=== PATIENT | female | born 1970 | race Caucasian/White ===

== ENCOUNTER 2019-03-11 09:25 | Emergency (ER) | payer OTHER ==
[2019-03-11] MEDS ORDERED: NALBUPHINE HCL 10 MG/1 ML IVP ONE (09:53)
[2019-03-11] MEDS ORDERED: 0.9 % SODIUM CHLORIDE 500 ML IV ONE ×2 (09:53→10:22)
[2019-03-11 10:19] LABS: BASOPHILS % 0.3 % (0.0-1.5); NEUTROPHILS # 3.2 # k/uL (1.4-7.7)
[2019-03-11] MEDS ORDERED: ONDANSETRON HCL/PF 4 MG/ 2ML VIAL IVP ONE (10:22)
--- NOTE | 2019-03-11 10:22 | Diagnostic Imaging Report ---
PATIENT MR#: [id number] PATIENT PATIENT NAME: ORLIN CASTELLON DATE OF : 1970 REFERRING PHYSICIAN: Jv Garcia EXAM DATE: 03/11/2019 ACCESSION NUMBER: [id number] EXAM DESCRIPTION: CT BRAIN W/O CONTRAST Exam: CT brain without contrast. History: Headache. Previous shunting. Axial images through the brain are submitted along with sagittal and coronal reformatted images. No previous studies are available for comparison. The brainstem and cerebellum are of normal attenuation. A 1 cm area of diminished attenuation in the right cerebellar hemisphere could represent old infarct. In the supratentorial regions a ventriculoperitoneal shunt enters the intracranial vault via the post erior aspect of the left parietal bone. The tip of the shunt is noted be position between the lateral ventricles anterio rly. A surgical clip in the basilar cistern is noted indicating previous repair of aneurysm. An area of diminished a ttenuation in the anterior aspect of the left parietal lobe may represent an old cortical infarct. No extra-axial flui d collections are identified. Craniotomy defect in the left anterior aspect of the parietal bone is noted. No other b sage abnormalities are identified. Impression: Postoperative changes indicating previous shunt placement and aneurysm repair. 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 No acute hemorrhage or mass effect is identified. Comparison with previous studies may be beneficial to further evaluate. Old right cerebellar hemisphere infarct is suspected. Read by: Dr. Mp Moreno Transcribed by: Transcribed Date: Electronically signed by: Dr. Mp Moreno Date signed: 03/11/2019 10:21:54 AM
--- NOTE | 2019-03-11 10:25 | ED Physician Documentation ---
General Adult - HISTORIAN Historian: patient, spouse - HPI Stated Complaint: headache, recent COT[employer] BR[employer]ER shunt Chief Complaint: General Adult Onset: hours Timing: still present Severity: moderate Further Comments: yes (Pt is a 48 yo female with c/o headache. 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 Pt has hx HTN and had elevated bp yesterday with increase in Doxaxosin dosing. Pt is normotensive on presentation.) - ROS CONST: no problems EYES/ENT: none CVS/RESP: none GI/: none MS/SKIN/LYMPH: none NEURO/PSYCH: headache - PAST HX Past History: other (chronic pain, HTN, cerebral aneurysm repair, COTTON BROKER shunt) Allergies/Adverse Reactions: Allergies Allergy/AdvReac Type Severity Reaction Status Date / Time No Known Allergies Allergy Verified 03/11/19 11:44 Home Medications: Ambulatory Orders Medication Instructions Recorded Baclofen [Liorasal] 10 mg PO TID 03/11/19 Doxazosin Mesylate [Cardura] 1 mg PO DAILY 03/11/19 Lacosamide [Vimpat] 100 mg PO BID 03/11/19 Venlafaxine HCl [Effexor] 50 mg PO BID 03/11/19 - SOCIAL HX Smoking History: non-smoker - FAMILY HX Family History: No - VITAL SIGNS Vital Signs: Vital Signs Temp Pulse Resp BP Pulse Ox 163/108 08/19/14 21:01 - REVIEWED ASSESSMENTS Nursing Assessment Reviewed: Yes Vitals Reviewed: Yes Progress - Progress Progress: NS 1 L IVF Zofran 4 mg IV Nubain 5 mg IV improved Exam: CT brain without contrast. History: Headache. Previous shunting. Axial images through the brain are submitted along with sagittal and coronal reformatted images. No previous studies are available for comparison. The brainstem and cerebellum are of normal attenuation. A 1 cm area of diminished attenuation in the right cerebellar hemisphere could represent old infarct. In the supratentorial regions a ventriculoperitoneal shunt enters the intracranial vault via the posterior aspect of the left parietal bone. The tip of the shunt is noted be position between the lateral ventricles anteriorly. A surgical clip in the basilar cistern is noted indicating previous repair of aneurysm. An area of diminished attenuation in the anterior aspect of the left parietal lobe may represent an old cortical infarct. No extra-axial fluid collections are identified. Craniotomy defect in the left anterior aspect of the parietal bone is noted. No other bony abnormalities are identified. Impression: Postoperative changes indicating previous shunt placement and aneurysm repair. 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 No acute hemorrhage or mass effect is identified. Comparison with previous studies may be beneficial to further evaluate. Old right cerebellar hemisphere infarct is suspected. ED Results Lab/Radiology - Lab Results Lab Results: Lab Results 03/11/19 10:14 WBC 4.40 K/ul K/ul (4.00-12.00) RBC 4.66 M/ul M/ul (3.90-5.20) Hgb 12.7 g/dL g/dL (11.5-16.0) Hct 39.1 % % (34.5-46.5) MCV 84.0 fl fl (80.0-100.0) MCH 27.3 pg L pg (28.0-34.0) MCHC 32.5 g/dL g/dL (30.0-36.0) RDW 12.8 % % (11.3-14.3) Plt Count 257 K/mm3 K/mm3 (130-400) Neut % (Auto) 71.7 % % (39.0-79.0) Lymph % (Auto) 15.0 % L % (16.0-50.0) Stokes % (Auto) 12.3 % H % (0.0-11.0) Eos % (Auto) 0.7 % % (0.0-6.8) Baso % (Auto) 0.3 % % (0.0-1.5) Neut # (Auto) 3.2 # k/uL # k/uL (1.4-7.7) Lymph # (Auto) 0.7 # k/uL # k/uL (0.6-4.0) Stokes # (Auto) 0.5 # k/uL # k/uL (0.0-0.9) Eos # (Auto) 0.0 # k/uL # k/uL (0.0-0.6) Baso # (Auto) 0.0 # k/uL # k/uL (0.0-0.5) - Orders Orders: ED Orders Category Date Time Status Place IV Lock 1T Care 03/11/19 09:[address] BRAIN W/O CONTRAST Stat Exams 03/11/19 Taken CBC/PLATELET/DIFF Routine Lab 03/11/19 10:14 Completed CMP [CMP] Routine Lab 03/11/19 10:14 Received 0.9 % Sodium Chloride [Normal Saline] 500 ml Med 03/11/19 09:53 Active IV NOW NORMAL SALINE @ 500 MLS/HR(500ml BOLUS) Med 03/11/19 10:22 Ordered 0.9 % Sodium Chloride [Normal Saline] 500 ml IV NOW Nalbuphine HCl [Nubain] Med 03/11/19 09:53 Discontinued 5 mg IVP NOW ONE Ondansetron HCl/Pf [Zofran] Med 03/11/19 10:22 Once 4 mg IVP NOW ONE General Adult Physical Exam - PHYSICAL EXAM GENERAL APPEARANCE: moderate distress EENT: eye inspection normal, pharynx normal NECK: normal inspection, supple RESPIRATORY: no resp distress, chest non-tender, breath sounds normal CVS: reg rate & rhythm, heart sounds normal ABDOMEN: soft, no organomegaly, normal bowel sounds BACK: normal inspection SKIN: warm/dry, normal color EXTREMITIES: non-tender, normal range of motion, no evidence of injury, no edema NEURO: motor nml, sensation nml, other (baseline mental status (pt has poor short-term memory, s/p cerebral aneurysm repair)) Discharge Clincal Impression: Headache Qualifiers: Headache type: unspecified Headache chronicity pattern: unspecified pattern Intractability: not intractable Qualified Code(s): R51 - Headache Referrals: Jv Blankenship DO [STAFF PHYSICIAN] - Condition: Stable Disposition: 01 HOME, SELF-CARE Decision to Admit: NO Decision Time: 11:26
[2019-03-11 10:31] LABS: eGFR (Non-African) > 60
[2019-03-11 12:15] VITALS: BP 127/90
== END 2019-03-11 11:55 | disposition home or self-care (01) ==
LOC: ED 09:25
DX: R51 Headache (principal)
CPT/HCPCS: 70450; 80053; 85025; 96361; 96374; 96375; 99283; 99284; J2300; J2405; J7060; S1016